=== PATIENT | female | born 1950 | race Caucasian/White ===

== ENCOUNTER 2016-10-16 12:54 | Inpatient (IN) | payer OTHER ==
--- NOTE | 2016-10-16 13:21 | ED EKG INTERP ---
EKG Interpretation - EKG Time of EKG reading by physician:: 13:12 EKG Read and Signed by:: Lan Shields EKG Interpretation (*Must complete 3 of following elements*): Abnormal Rate: 126 Rhythm: A-fib with RVR QRS: LBB ST Wave: non-specific ST changes Prior EKG Comparison: changes noted (new a-fib) <Leoncio King - Last Filed: 10/16/16 13:19> - EKG QRS: other (review of preivous EKG reveals that the LBBB is old) <Lan Shields - Last Filed: 10/16/16 16:25> Attestation - Scribe Verification/Attestation Scribe:: Leoncio King Acting as Scribe for:: Lan Shields Scribe documention review:: This chart was documented by a scribe and accurately reflects the service the provider performed and the decisions made by the provider. <Leoncio King - Last Filed: 10/16/16 13:19> Physician Attestation - Physician Attestation I, the provider, attest to the following statement:: Lan Shields Physician documentation Attestation:: This documentation recorded by the scribe accurately reflects the service I personally performed and the decisions made by me. <Leoncio King - Last Filed: 10/16/16 13:19>
[2016-10-16] MEDS ORDERED: CARDIZEM IV ONE (13:41)
--- NOTE | 2016-10-16 13:44 | PROVIDER DOCUMENTATION ---
HPI-General Adult - General Chief Complaint: Weakness Stated Complaint: cough/congestion Time Seen by Provider: 10/16/16 13:29 Source: patient Allergies/Adverse Reactions: Patient Allergies Allergy/AdvReac Type Severity Reaction Status Date / Time celecoxib [From Celebrex] Allergy ITCHING Verified 10/16/16 13:46 Home Medications: Home Medication List Medication Instructions Recorded Confirmed Last Taken Type Aspirin [Aspirin EC] 81 mg PO DAILY 02/20/15 10/16/16 10/16/16 History Doxycycline 80 mg PO DAILY 02/20/15 02/20/15 02/20/15 History Rosuvastatin Calcium [Crestor] 10 mg PO DAILY 02/20/15 10/16/16 10/16/16 History Warfarin [Coumadin] 7.5 mg DAILY 02/20/15 10/16/16 10/16/16 History Amlodipine [Norvasc] 5 mg PO DAILY 10/16/16 10/16/16 10/16/16 History Hydrocodone Bit/Acetaminophen 1 each PO DAILY PRN 10/16/16 10/16/16 10/16/16 History [Hydrocodon-Acetaminoph 7.5-325] Metoprolol [Lopressor] 50 mg PO DAILY 10/16/16 10/16/16 10/16/16 History Valsartan 320 mg PO DAILY 10/16/16 10/16/16 10/16/16 History - History of Present Illness -Gen Adult Nature of Presenting Problems: patient is a 66 y/o F that presents to the ER with 5 days for generalized weakness and feeling of unwell. she reports having cough with blood tinted. No fever/chills, N/V but does report diarrhea. Denies chest pain or shortness of breath. Location of Pain/Injury: reports: generalized Pain Radiation: reports: no radiation Quality of Pain: reports: aching Severity: reports: moderate Onset/Duration: reports: gradual, 5 days ago Timing: reports: still present, constant Context/Activities at Onset: reports: none Modifying Factors: improves with: nothing Associated Symptoms: reports: cough, diarrhea, weakness. denies: back/neck pain , chest pain, diaphoresis, dizziness, EENT symptoms, fever/chills, genitourinary problems, nausea, shortness of breath, vomiting Similar Symptoms Previously?: No Recently seen or treated by another doctor?: No Review of Systems - Adult - REVIEW OF SYSTEMS - ADULT Constitutional: reports: fatique. denies: chills, fever Eyes: reports: no symptoms reported Ears, Nose, Mouth & Throat: denies: ear pain, sinus problem, throat pain, throat swelling Cardiovascular: denies: chest pain, palpitations, syncope Respiratory: reports: cough, hemoptysis, shortness of breath Gastrointestinal: reports: diarrhea. denies: abdominal pain, nausea, vomiting Genitourinary: denies: dysuria, frequency, hematuria Musculoskeletal: reports: muscle aches, muscle weakness Integumentary: reports: no symptoms reported Neurological: reports: no symptoms reported Psychiatric: reports: no symptoms reported Endocrine: reports: no symptoms reported Hematologic/Lymphatic: reports: no symptoms reported Allergic/Immunologic: reports: no symptoms reported All Other Systems: Reviewed and Negative Past History - Adult - PAST MEDICAL HISTORY-ADULT Review of Records: reports: Old Records Reviewed, Nursing Assessment Review, Medications Reviewed Cardiovascular: reports: cardiac disease, A-Fib, HTN, hyperlipidemia - PRIOR SURGERIES/PROCEDURES Surgical/Procedure History: reports: hysterectomy, - IMMUNIZATION STATUS Childhood Immunizations: See Nurse Assessment Flu Vaccine: See Nurse Assessment - FAMILY HISTORY Family History: reviewed, not pertinent - SOCIAL HISTORY Smoking: quit greater than 1 year, cigarettes Living Situation: family Physical Exam-General - PHYSICAL EXAM-ADULT Initial Vital Signs Reviewed: Yes - CONSTITUTIONAL General Appearance: alert, no apparent distress - EYES Eyes: PERRL/EOMI, pink conjunctivae - HEAD, EARS, NOSE, MOUTH & THROAT HENMT: normocephalic/atraumatic, moist mucous membranes, normal ENT inspection - NECK Neck: non-tender, full range of motion, normal inspection - RESPIRATORY Respiratory: no respiratory distress, no accessory muscle use, wheezing ( expiratory throughout bilateral) - CARDIOVASCULAR Cardiovascular: tachycardia, irregularly irregular - GASTROINTESTINAL (ABDOMEN) Abdominal Exam: normal bowel sounds, non tender, soft, no organomegaly, no pulsatile mass - MUSCULOSKELETAL Extremity: normal range of motion, non-tender, normal inspection, no pedal edema - SKIN Integumentary: normal color, warm/dry - NEUROLOGIC Neurologic: grossly normal, no motor/sensory deficits - PSYCHIATRIC Psych/Mental Status: normal mood/affect, normal thought content, normal thought process, oriented x 3 Progress - PLAN OF CARE/RESULTS Progress/Plan/Lab Results: plan of care-labs, ekg, cxr, meds 1442-fluids and antibiotic ordered, at bedside due to patient's low bp 1452-hospitalist paged Vital Signs Temp Pulse Resp BP Pulse Ox 10/16/16 14:52 108 H 18 94 L 10/16/16 14:47 107 H 33 H 147/70 94 L 10/16/16 14:34 110 H 31 H 92/51 88 L 10/16/16 14:24 106 H 31 H 108/54 90 L 10/16/16 14:21 124 H 33 H 133/46 10/16/16 13:14 98.2 F 122 H 22 158/68 95 celecoxib [From Celebrex] Allergy (Verified 10/16/16 13:46) ITCHING Aspirin [Aspirin EC] 81 mg PO DAILY 02/20/15 Doxycycline 80 mg PO DAILY 02/20/15 Rosuvastatin Calcium [Crestor] 10 mg PO DAILY 02/20/15 Warfarin [Coumadin] 7.5 mg DAILY 02/20/15 Amlodipine [Norvasc] 5 mg PO DAILY 10/16/16 Hydrocodone Bit/Acetaminophen [Hydrocodon-Acetaminoph 7.5-325] 1 each PO DAILY PRN 10/16/16 Metoprolol [Lopressor] 50 mg PO DAILY 10/16/16 Valsartan 320 mg PO DAILY 10/16/16 Laboratory 10/16/16 10/16/16 10/16/16 13:26 13:26 13:26 WBC RBC Hgb Hct MCV MCH MCHC RDW Std Deviation Plt Count MPV Immature Gran % (Auto) Neut % (Auto) Lymph % (Auto) Clark % (Auto) Eos % (Auto) Baso % (Auto) Immature Gran # (Auto) Neut # (Auto) Lymph # (Auto) Clark # (Auto) Eos # (Auto) Baso # (Auto) PT 40.1 H INR 3.73 PTT (Actin FS) 61.8 H Sodium Potassium Chloride Carbon Dioxide Anion Gap BUN Creatinine Estimated GFR/1.73 m2 BUN/Creatinine Ratio Glucose Calculated Osmolality Calcium Magnesium Total Bilirubin AST ALT Alkaline Phosphatase Creatine Kinase Creatine Kinase Index CK-MB (CK-2) Troponin T 0.134 H Grq-V-Ubhipumgutd Pept Total Protein Albumin Globulin Albumin/Globulin Ratio Plasma Lactate 3.3 H 10/16/16 10/16/16 10/16/16 13:26 13:26 13:26 WBC 24.86 H RBC 4.44 Hgb 12.9 Hct 38.9 MCV 87.6 MCH 29.1 MCHC 33.2 RDW Std Deviation 14.9 H Plt Count 190 MPV 12.3 H Immature Gran % (Auto) 1.6 H Neut % (Auto) 96.4 H Lymph % (Auto) 1.0 L Clark % (Auto) 0.9 L Eos % (Auto) 0.0 Baso % (Auto) 0.1 Immature Gran # (Auto) 0.41 H Neut # (Auto) 23.94 H Lymph # (Auto) 0.26 L Clark # (Auto) 0.23 Eos # (Auto) 0.00 Baso # (Auto) 0.02 PT INR PTT (Actin FS) Sodium 127 L Potassium 4.5 Chloride 89 L Carbon Dioxide 17 L Anion Gap 21 BUN 48 H Creatinine 2.6 H Estimated GFR/1.73 m2 18 BUN/Creatinine Ratio 18 Glucose 90 Calculated Osmolality 267 Calcium 8.0 L Magnesium 1.6 Total Bilirubin 0.68 AST 40 H ALT 19 Alkaline Phosphatase 67 Creatine Kinase 814 H Creatine Kinase Index 0.9 CK-MB (CK-2) 7.22 H Troponin T Jkg-A-Oykwhedbeqt Pept 43551 H Total Protein 6.4 Albumin 2.9 L Globulin 3.5 Albumin/Globulin Ratio 0.8 Plasma Lactate Orders Category Date Time Status Cardiac Monitoring DIRECTED Care 10/16/16 13:38 Active Oxygen Therapy- ED Nursing DIRECTED Care 10/16/16 14:37 Active Saline Loc NOW Care 10/16/16 13:38 Active CHEST-PORTABLE [RAD] Stat Exams 10/16/16 13:39 Draft BLOOD CULTURE [BLDCUL] Stat Lab 10/16/16 14:00 Results CBC WITH ELECTRONIC DIFF [HEME] Stat Lab 10/16/16 13:26 Completed CK PROFILE [SP CHEM] Stat Lab 10/16/16 13:26 Completed COMPREHENSIVE METABOLIC PANEL [CHEM] Stat Lab 10/16/16 13:26 Completed INFLUENZA SCREEN A/B Stat Lab 10/16/16 13:50 Completed LACTATE, PLASMA [CHEM] Stat Lab 10/16/16 13:26 Completed LACTATE, PLASMA [CHEM] Stat Lab 10/16/16 16:45 Uncollected MAGNESIUM [CHEM] Stat Lab 10/16/16 13:26 Completed PRO B-NATRIURETIC PEPTIDE Stat Lab 10/16/16 13:26 Completed PROTIME WITH INR [COAG] Stat Lab 10/16/16 13:26 Completed PTT [COAG] Stat Lab 10/16/16 13:26 Completed TROPONIN T Stat Lab 10/16/16 13:26 Completed 0.9% Sodium Chloride Inj [Ns] 500 ml Med 10/16/16 14:36 Discontinued IV 999 mls/hr 0.9% Sodium Chloride Inj [Ns] 500 ml Med 10/16/16 14:42 Discontinued IV 999 mls/hr Albuterol 2.5MG/Ipratrop 0.5MG [Duoneb (A & A)] Med 10/16/16 14:37 Discontinued 3 ml INH NOW ONE Diltiazem [Cardizem] Med 10/16/16 13:41 Discontinued 10 mg IV NOW ONE Piperacil/Tazobact 3.375 gm/Ns [Zosyn 3.375 gm/Ns] 50 Med 10/16/16 14:42 Discontinued ml IV NOW Aerosol Treatments Routine Oth 10/16/16 14:38 Completed Aerosol Treatments Stat Oth 10/16/16 14:38 Completed - XRAY 1 XRAY Study: Chest Impression: Abnormal XRAY Interpretation: Pneumonia on Right - CONSULTS/PCP/HOSPITALIST Notification #1 *Consult/PCP/Hospitalist*: (hospitalist) Time Discussed: 15:30 Reason/Comments: at bedside Consult Disposition: Will see in ED, Admit Departure - Departure Time of Disposition Order: 15:30 DIAGNOSIS: Atrial fibrillation with RVR, URIEL (acute kidney injury), Elevated troponin Pneumonia involving right lung Qualifiers: Pneumonia type: due to unspecified organism Lung location: unspecified part of lung Qualified Code(s): J18.9 - Pneumonia, unspecified organism Sepsis Qualifiers: Sepsis type: sepsis due to unspecified organism Qualified Code(s): A41.9 - Sepsis, unspecified organism Hypotension Qualifiers: Hypotension type: other hypotension type Qualified Code(s): I95.89 - Other hypotension Heart failure Qualifiers: Heart failure type: unspecified heart failure type Heart failure chronicity: acute Qualified Code(s): I50.9 - Heart failure, unspecified Disposition: ADMITTED INPATIENT 09 Certified Medical Emergency: Emergent Condition: Stable Referrals: Pollo Shepherd [Primary Care Provider] - - Critical Care Note Total Time (mins): 45 Critical Care Statement: This patient required my direct personal management to treat or rule out processes, the absence of which, could potentiallly result in sudden, clinically significant life or limb threatening deterioration. Attestation - Scribe Verification/Attestation Scribe:: Leoncio King Acting as Scribe for:: Lan Shields Scribe documention review:: This chart was documented by a scribe and accurately reflects the service the provider performed and the decisions made by the provider. Physician Attestation - Physician Attestation I, the provider, attest to the following statement:: Lan Shields Physician documentation Attestation:: This documentation recorded by the scribe accurately reflects the service I personally performed and the decisions made by me.
[2016-10-16 14:17] LABS: INR 3.73; PROTIME 40.1 Seconds (9.2-11.7); PTT 61.8 Seconds (22.0-36.0)
[2016-10-16 14:18] LABS: BASO% 0.1 % (0.0-0.8); HEMATOCRIT 38.9 % (37.0-47.0); HEMOGLOBIN 12.9 g/dL (12.0-16.0); IMM GRAN# 0.41 X1000 (0.0-0.04); IMM GRAN% 1.6 % (0.0-0.5); LYMPH# 0.26 X1000 (1.2-3.4); MANUAL DIFF NEEDED? NO; MCH 29.1 PG (27-31); MCHC 33.2 g/dL (33-37); MCV 87.6 FL (81-99); MONO# 0.23 X1000 (0.11-0.59); MONO% 0.9 % (1.7-9.3); MPV 12.3 FL (7.4-10.4); NEUT% 96.4 % (42.2-75.2); PLT 190 X1000 (130-400); RBC 4.44 XMIL (4.2-5.4)
--- NOTE | 2016-10-16 14:24 | Diag Imaging Result Document ---
PROCEDURE NAME: CHEST-PORTABLE - 10/16/2016 AP PORTABLE CHEST AT 1353 HOURS: FINDINGS: There is dense alveolar opacification in the mid lung field on the right extending into the lower lobe. This was not present on 02/20/2015. There is cardiomegaly. There is a mitral valve prosthesis. There are sternotomy wires. IMPRESSION: Pneumonia on the right.
[2016-10-16] MEDS ORDERED: NS 500 ML IV ONE ×2 (14:36→14:42)
[2016-10-16] MEDS: DUONEB (A & A) INH ONE ×2 (14:37→23:31)
[2016-10-16] MEDS ORDERED: ZOSYN 3.375 GM/NS 50 ML IV ONE (14:42)
[2016-10-16 14:43] LABS: ALBUMIN 2.9 g/dL (3.5-5.0); MAGNESIUM 1.6 mg/dL (1.5-2.7); POTASSIUM 4.5 mmol/L (3.5-5.1); TOTAL BILIRUBIN 0.68 mg/dL (0.20-1.00); TOTAL PROTEIN 6.4 g/dL (6.3-8.3)
[2016-10-16 14:56] LABS: CK INDEX 0.9 (0.0-2.5); CK-MB 7.22 ng/mL (0.0-5.0)
[2016-10-16] MEDS ORDERED: NS NEB INH SCH (16:15)
[2016-10-16] MEDS ORDERED: LASIX IV ONE (16:30)
[2016-10-16] MEDS ORDERED: LEVAQUIN 250 MG/D5W 50 ML IV SCH (16:30)
--- NOTE | 2016-10-16 16:41 | HISTORY AND PHYSICAL ---
HISTORY OF PRESENT ILLNESS: She states that over the last 7-10 days she has gotten progressively more short of breath. She denies any fever or chills. She has been coughing a little more. Definite increase in orthopnea and paroxysmal nocturnal dyspnea and dyspnea, and she has noticed some swelling in her lower extremities as well. She denies any chest pain. She denies any feeling of palpitations. She does say she thinks she has had atrial fibrillation in the past. She has never been admitted here. PAST MEDICAL HISTORY: 1. She states she has had atrial fibrillation before. 2. She states she has had what sounds like a partial ventriculectomy for I suspect ventral hernia and aortic valve replacement. I think this was a little over a year ago. 3. She has been on O2, and she smoked all her life. So, I presume she has got some underlying COPD with hypoxemia. I suspect some CO2 retention. 4. Hypertension. 5. Hyperlipidemia. PAST SURGICAL HISTORY: She has had a hysterectomy. Apparently, she has had some cancer involving the vulva and had some vaginal resection. She has also had some lymph node dissections in both legs, I believe at the femoral triangle. She has had right knee surgery with patella fracture. FAMILY HISTORY: Brother has had a stroke. Apparently peripheral vascular disease. SOCIAL HISTORY: She smoked all her life. She has cut back. She has not had any cigarettes in a couple weeks and was down to a couple of cigarettes a week by report. Negative for alcohol. No illicit drugs. I think she lives alone. REVIEW OF SYSTEMS: General: No weight gain or loss. No fever or chills that she is aware of. HEENT: Unremarkable. Respiratory: As above. Increased orthopnea. Episodes of paroxysmal nocturnal dyspnea. Increased cough. Increased wheezing. Increased dyspnea on exertion and increased pedal edema. Cardiovascular: She denies any palpitation or chest pain. GI/: No gross hematuria, dysuria. No change in bowel habits. Musculoskeletal/Neurologic: No focal changes. Endocrinologic/Hematologic: No significant history that she is aware of. No thyroid issues. PHYSICAL EXAMINATION: VITAL SIGNS: Temp 98.2 degrees, pulse 114, respirations 30, blood pressure 99/41. EYES: Pupils are equal and round. CVP: About 10 cm water pressure from angle of Dominguez. LUNGS: With rales at both bases and expiratory wheezing throughout the lungs. Prolonged expiratory phase, 1.5 to 1 inspiratory phase. She is on a face mask at this time. CARDIOVASCULAR: Irregular rhythm, irregular rate. Monitor shows atrial fibrillation, rate about 110. She has a left bundle branch pattern. ABDOMEN: Soft. No hepatosplenomegaly. There is positive hepatojugular reflux. EXTREMITIES: Without clubbing. She does have trace edema in the ankle up to mid kennedy. SKIN: Warm and dry. WEIGHT: 175 pounds. HEIGHT: 5 feet 3 inches. LABORATORY DATA: Blood Work: White blood cell count 24,860. Hematocrit 38, platelet count 190,000. Sodium 127, potassium 4.5, chloride 89, bicarb 17. BUN 48, creatinine 2.6. Liver functions: Transaminase AST was 40, ALT 19. Alkaline phos 67. ProBNP was 25,062. Albumin 2.9. Globulin 3.5. Lactate level 3.3. ProTime 40. PTT 61. Chest x-ray shows pneumonia on the right side. There is a mitral valve prosthesis. So it is a mitral valve, not aorta valve. Opacification of the mid lung field. The right extending into the lower lobe. PRESENT MEDICATIONS: 1. Norvasc 5 mg a day. 2. Aspirin 81 mg a day. 3. Doxycycline 80 mg daily. 4. Hydrocodone 7.5/325 p.r.n. 5. Lopressor 50 mg a day. 6. Crestor 10 mg a day. 7. Losartan 320 mg daily. 8. Coumadin 7.5 mg daily. Once again, her ProTime was 40, so a little elevated. ASSESSMENT AND PLAN: 1. It looks like she has got pulmonary venous hypertension, so we will try and diurese a little bit. This is in the face of what appears to be chronic atrial fibrillation. We will get an echocardiogram and look at her left ventricular function. She has had a ventriculectomy, it appears from mitral valve replacement and not aortic valve with a mechanical valve. 2. Has mechanical valve, in atrial fibrillation. She is on Coumadin. ProTime is high. We need to hold her Coumadin and watch her ProTimes and let these drift down. 3. Appears to have an infiltrate on the right, so, consistent with pneumonia. Her white count is elevated. Community acquired. We will put her on Levaquin and may add Rocephin to her regimen for right now. Cover for gram negative as well. 4. Status post ventriculectomy. I presume there is some left ventricular dysfunction. ProBNP is elevated and probably also augmented by her left bundle branch block and atrial fibrillation. I asked Cardiology to help with management. 5. History of hypercholesterolemia. Continue Crestor. We will watch her blood pressure. Note the lactate level was a little bit high.
--- NOTE | 2016-10-16 17:41 | CONSULTATION ---
DATE OF CONSULTATION: 10/16/2016 INDICATION: History of mitral valve replacement and hypertrophic obstructive cardiomyopathy. HISTORY OF PRESENT ILLNESS: Ms. Collins is a 66-year-old, white female with a history of mitral valve replacement and HOCM, normally followed by Dr. Miller, last office visit in October 2015. She presented for evaluation of worsening shortness of breath over the last 5-6 days. Initial ER evaluation has demonstrated a markedly elevated white count at 24.8 with a left shift. She has hyponatremia and acute kidney injury as well. Her lactate is 3.3. She has had some subjective fevers at home as well as some cough. She has not had any orthopnea. She does report some issues with lower extremity edema. She has Lasix at home but has not been taking it for the last several months because she has not needed it. She has not had any chest pain. She has a history of atrial fibrillation as well as mitral valve replacement and has been taking her Coumadin as directed. PAST MEDICAL HISTORY: 1. Significant for hypertrophic cardiomyopathy. She had a myectomy performed by Dr. Zamora 2014. Her last echo was performed in April 2015. At that time, she had a normal EF of 60%-65% and continued to have severe interventricular septal hypertrophy with a thickness of 2.8 cm. 2. History of mitral valve replacement. That was performed in 2014 as well. The gradient across the valve at that time was not indicated on report that we have. 3. Coronary artery disease with previous PCI in 2003. 4. Paroxysmal atrial fibrillation maintained on Coumadin followed by Dr. Shepherd. 5. Carotid artery disease, a 60%-79% bilateral ICA stenosis by Doppler. 6. Hypertension. 7. Hyperlipidemia. 8. Reflux disease. SOCIAL HISTORY: She does not smoke. She previously did but not currently. FAMILY HISTORY: Hypertension. REVIEW OF SYSTEMS: A 10 system review of systems is negative except for those mentioned in HPI. PHYSICAL EXAMINATION: Vital Signs: Afebrile, heart rate of 114, blood pressure 99/41. General: She is in no acute distress. She is somewhat tachypneic. HEENT: Oropharynx is moist. She has normal dentition. Eye examination shows pink conjunctivae, white sclerae. Neck: Examination shows no obvious thyromegaly or thyroid tenderness. Cardiovascular: She is in a regular rate and rhythm. She has no obvious murmurs. She has no S3. She has no lower extremity edema. She has warm and well perfused lower extremities. She does have a crisp mechanical S1. Chest Exam: She has coarse breath sounds heard throughout especially on the right side. She has some mild tachypnea. Abdomen: Soft, nontender, nondistended. She has no obvious organomegaly. Skin Exam: Warm and dry throughout. Neurological: She is moving all extremities well. Cranial nerves 2- 12 are intact without any sensation deficits. Psychiatric: Alert, oriented, and pleasant. She has normal mood and affect. PERTINENT DATA: She has a chest x-ray today which demonstrates a right-sided pneumonia, mitral valve prosthesis. Laboratory data shows a white count of 25, hematocrit is 38, platelet count is 190,000, INR is 3.7. Her sodium is 127, potassium is 4.5. Her BUN is 48, creatinine 2.6. In 2015 her BUN and creatinine were 19 and 1.1. Her troponin is 0.134. Her albumin level is 2.9. Her proBNP is 25,000. Lactate level is 3.3. EKG shows a left bundle branch block which is chronic, she appears to be in atrial fibrillation, rate of 126. ASSESSMENT: 1. Severe pneumonia. 2. Mitral valve replacement. 3. Hypertrophic obstructive cardiomyopathy. PLAN: We will check an echo. We will like to see what her left ventricle looks like, if it is small and under filled we will likely consider fluids. In addition I have ordered a noncontrast CT to ensure she does not have pulmonary edema but certainly the patient has a history of HOCM which certainly could explain some of these issues with the hyponatremia and heart failure type presentation. However more likely I believe she has a pneumonia causing the elevated white count, hyponatremia, renal insufficiency. Her proBNP is quite elevated which I cannot quite account for by the pneumonia, but perhaps this is also complicated by the acute kidney injury and atrial fibrillation. We will follow up on the CT and echo results.
[2016-10-16] MEDS ORDERED: ZOFRAN IV PRN (19:01)
[2016-10-16] MEDS ORDERED: NORCO-7.5 PO PRN (19:01)
[2016-10-16] MEDS ORDERED: TYLENOL PO PRN (19:01)
[2016-10-16] MEDS ORDERED: MUCOMYST 20% ONE (19:11)
[2016-10-16] MEDS: ATROVENT NEB INH SCH ×2 (19:26→23:32)
[2016-10-16] MEDS: MUCOMYST 20% INH SCH (19:27)
[2016-10-16] MEDS: PULMICORT INH SCH (19:27)
[2016-10-16] MEDS: XOPENEX NEB INH SCH ×2 (19:27→23:32)
[2016-10-16] MEDS: ROCEPHIN 1 GM/NS 50 ML IV SCH (19:49)
[2016-10-16] MEDS: LOPRESSOR PO SCH (20:58)
[2016-10-16] MEDS ORDERED: LASIX IV SCH (21:00)
[2016-10-16 22:30] LABS: CK INDEX 0.7 (0.0-2.5); CK-MB 7.48 ng/mL (0.0-5.0)
--- NOTE | 2016-10-17 02:39 | PROGRESS NOTE ---
DATE: 10/16/2016 ADDENDUM: Chest x-ray showed pneumonia on the right and I guess we also need to entertain the possibility of a PTE. Troponin was mildly elevated. CPK elevated. Also of concern is her acute kidney injury. Not sure of her baseline creatinine but her creatinine was 2.6. We may need to pursue a V/Q scan. We will put her on oral Levaquin and Rocephin for now for antibiotics.
[2016-10-17] MEDS: XOPENEX NEB INH SCH ×5 (03:30→19:50)
[2016-10-17] MEDS: ATROVENT NEB INH SCH ×5 (03:40→19:50)
[2016-10-17] MEDS ORDERED: LANOXIN IV ONE ×2 (04:04→09:00)
[2016-10-17] MEDS: CARDIZEM 100 MG/NS 100 ML IV SCH ×2 (04:17→16:35)
[2016-10-17 04:35] LABS: ALLEN TEST YES; BE -11.3 mmoll (-3.0-3.0); BLOOD TYPE ARTERIAL; DRAW SITE R RADIAL; METHB 1.2 % (0.0-1.5); MODALITY VENTIMASK; O2(CT) 18.5 mL/dL (15.0-23.0); PCO2(98.6) 25 mmHg (35-45); PO2(98.6) 62 mmHg (60-100); SAMPLE BLOOD; SAO2 93.4 % (95.0-100.0); THB 14.6 g/dL (11.5-17.4); pH(98.6) 7.32 (7.35-7.45)
[2016-10-17 05:45] LABS: HEMOGLOBIN A1C 5.5 % (4.8-6.0)
[2016-10-17 06:05] LABS: ALBUMIN 2.7 g/dL (3.5-5.0); CALCIUM 7.4 mg/dL (8.8-10.2); MAGNESIUM 1.6 mg/dL (1.5-2.7); POTASSIUM 4.7 mmol/L (3.5-5.1); TOTAL BILIRUBIN 0.78 mg/dL (0.20-1.00); TOTAL PROTEIN 5.9 g/dL (6.3-8.3)
[2016-10-17 06:14] LABS: URINE CULTURE NEEDED? NO; URINE SOURCE CATH
--- NOTE | 2016-10-17 06:22 | EKG Report ---
Test Performed on : 10/16/2016 1:12:26 PM Test Reason : SOB Blood Pressure : / mmHG Vent. Rate : 126 BPM Atrial Rate : 120 BPM P-R Int : 000 ms QRS Dur : 158 ms QT Int : 366 ms P-R-T Axes : 000 -08 168 degrees QTc Int : 530 ms Atrial fibrillation. with rapid ventricular response. Left bundle branch block Abnormal ECG No previous ECGs available Unconfirmed Result
[2016-10-17 06:36] LABS: EOS# 0.09 X1000 (0.0-0.7); EOS% 0.4 % (0.0-10.0); HEMATOCRIT 35.8 % (37.0-47.0); IMM GRAN# 1.15 X1000 (0.0-0.04); IMM GRAN% 4.7 % (0.0-0.5); LYMPH# 0.19 X1000 (1.2-3.4); LYMPH% 0.8 % (20.5-51.1); MANUAL DIFF NEEDED? YES; MCH 28.9 PG (27-31); MCHC 33.5 g/dL (33-37); MCV 86.3 FL (81-99); MONO# 0.18 X1000 (0.11-0.59); MONO% 0.7 % (1.7-9.3); MPV 12.1 FL (7.4-10.4); NEUT% 93.4 % (42.2-75.2); PLT 206 X1000 (130-400); RBC 4.15 XMIL (4.2-5.4)
[2016-10-17 06:42] LABS: BANDS 4 % (0-1); LYMPHS 6 % (21-51); MONO 3 % (1-9)
[2016-10-17 06:57] LABS: CK INDEX 0.8 (0.0-2.5); CK-MB 9.62 ng/mL (0.0-5.0)
[2016-10-17] MEDS ORDERED: PRILOSEC PO SCH (07:00)
--- NOTE | 2016-10-17 07:22 | EKG Report ---
Test Performed on : 10/17/2016 07:06:33 AM Test Reason : 0600 Blood Pressure : / mmHG Vent. Rate : 111 BPM Atrial Rate : 111 BPM P-R Int : 000 ms QRS Dur : 158 ms QT Int : 314 ms P-R-T Axes : 000 -09 168 degrees QTc Int : 427 ms Atrial fibrillation. with rapid ventricular response. Left bundle branch block Abnormal ECG No previous ECGs available Confirmed by Praveen GOMEZ, Aris Pandey ([id number]) on 10/17/2016 5:23:25 PM
[2016-10-17 07:26] LABS: FREE T4 1.13 ng/dL (0.93-1.70)
[2016-10-17] MEDS ORDERED: BENADRYL IV PRN (07:27)
[2016-10-17] MEDS ORDERED: SOLU-MEDROL IV ONE (07:28)
--- NOTE | 2016-10-17 07:28 | PROGRESS NOTE ---
DATE: 10/17/2016 SUBJECTIVE: Ms. Collins says she feels better. She says it has only been the last couple of hours. She is breathing more comfortably and feels better. She has remained afebrile. OBJECTIVE: Her temperature was 99.2 degrees, pulse 127, blood pressure 106/52, respiration rate about 20. She is on O2 Venturi mask. O2 saturations above 90%. Lungs are clear anterolateral. Cardiovascular: Regular rhythm and rate without murmur or S3. Abdomen is soft. Skin is warm and dry. Good urine output by report. I do not see I's and O's yet. LABORATORY DATA: White count 24,590. Hematocrit 35, platelet count 206,000. Sodium 125, potassium 4.7, chloride 88. BUN 62, creatinine 3.6. ProBNP was 35,000. ASSESSMENT AND PLAN: 1. Severe pneumonia. Continue present antibiotics and bronchodilators, supplemental O2. 2. History of mitral valve replacement. 3. Hypertrophic obstructive cardiomyopathy. I believe she had part of her septum resected for hypertrophic cardiomyopathy. 4. Renal insufficiency. Serum creatinine is 3.6. I think we need to give her a little more volume to see if this will improve. She is on Cardizem drip. Appears to remain in atrial fibrillation. She was given some digoxin yesterday. She is on some Levaquin and ceftriaxone. I think we will need to pursue probably a V/Q scan or even do a CT without contrast. We will discuss with Cardiology.
[2016-10-17 07:30] LABS: BILIRUBIN URINE NEGATIVE (NEGATIVE); BLOOD URINE SMALL (NEGATIVE); COLOR YELLOW; GLUCOSE URINE NEGATIVE (NEGATIVE); LEUKOCYTES URINE NEGATIVE (NEGATIVE); NITRITE URINE NEGATIVE (NEGATIVE); PH URINE 5.5; PROTEIN URINE 100 mg/dL (NEGATIVE); SP GRAVITY URINE 1.021; TURBIDITY URINE TURBID (CLEAR); UROBILINOGEN URINE 2 mg/dL (NORMAL)
[2016-10-17 07:32] LABS: UR EPITHELIAL CELLS >10 /HPF (<10); URINE BACTERIA NEGATIVE /HPF; URINE MICRO REVIEW NEEDED? YES; URINE RBC <10 /HPF (<10); URINE WBC <10 /HPF (<10)
[2016-10-17 07:37] LABS: INR 7.73
[2016-10-17 07:38] LABS: PROTIME 83.7 Seconds (9.2-11.7)
[2016-10-17] MEDS: MUCOMYST 20% INH SCH ×2 (07:44→19:50)
[2016-10-17] MEDS: PULMICORT INH SCH ×2 (07:45→19:50)
[2016-10-17 07:52] LABS: URINE CASTS GRANULAR PRESENT; URINE CRYSTALS NONE SEEN; URINE SMALL ROUND CELLS NONE SEEN
[2016-10-17] MEDS: NS 1,000 ML IV SCH ×2 (07:55→21:56)
[2016-10-17] MEDS: CRESTOR PO SCH (08:07)
[2016-10-17 08:12] LABS: URINE CULTURE NEEDED? NO; URINE SOURCE CATH
[2016-10-17] MEDS: LOPRESSOR PO SCH ×2 (08:12→21:25)
[2016-10-17 08:26] LABS: BILIRUBIN URINE NEGATIVE (NEGATIVE); BLOOD URINE MODERATE (NEGATIVE); COLOR ORANGE; GLUCOSE URINE NEGATIVE (NEGATIVE); LEUKOCYTES URINE NEGATIVE (NEGATIVE); NITRITE URINE NEGATIVE (NEGATIVE); PH URINE 5.5; PROTEIN URINE 100 mg/dL (NEGATIVE); TURBIDITY URINE TURBID (CLEAR); UROBILINOGEN URINE 2 mg/dL (NORMAL)
[2016-10-17 08:27] LABS: URINE MICRO REVIEW NEEDED? YES
[2016-10-17 08:32] LABS: UR EPITHELIAL CELLS >10 /HPF (<10); URINE BACTERIA NEGATIVE /HPF; URINE WBC <10 /HPF (<10)
[2016-10-17 08:41] LABS: URINE CASTS NONE SEEN; URINE CRYSTALS NONE SEEN; URINE SMALL ROUND CELLS NONE SEEN
[2016-10-17] MEDS: ASPIRIN EC PO SCH (08:46)
--- NOTE | 2016-10-17 08:59 | PROGRESS NOTE ---
DATE: 10/17/2016 SUBJECTIVE: Ms. Collins reports she is feeling better this morning, but she still physically appears fairly tachypneic. OBJECTIVE: Vital Signs: She is febrile to 102.3 this morning. Heart rates continue to be elevated predominantly in the 110s to 120s. Blood pressure 109/52 most recently. General: She is in mild distress. She is on 50% face mask satting in the low 90s, and she is mildly tachypneic. Cardiovascular: She sounds to be in an irregularly irregular rhythm. This is consistent with her atrial fibrillation. She has no lower extremity edema, warm and well perfused extremities. Chest exam: She has very coarse breath sounds with rales somewhat diffusely throughout all lung hardin. She is mildly tachypneic. Abdomen: Soft, nontender, nondistended. She has no obvious organomegaly. Skin Exam: Warm and dry throughout. PERTINENT DATA: White count is 24, which is stable from yesterday. Hematocrit 35, platelet count 206. She has a left shift with a bandemia of 4, INR is 7.7 today. ABG shows a pH of 7.32, pCO2 of 25, PO2 of 62, and give an AA gradient of 263. Her sodium continues to be low at 125. BUN and creatinine have increased to 62 and 3.6. Her magnesium level is 1.6. Her cardiac enzymes continue to rise slightly 0.134, initially 0.206 this morning. Urinalysis was reviewed. ASSESSMENT: 1. Severe pneumonia. 2. 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 3. Atrial fibrillation. 4. Acute kidney injury. PLAN: I am unclear on her volume status. She did receive some Lasix yesterday in the ER, and I am unclear exactly how her output went, but she has had essentially very little urine output since coming up to the [facility]. I am consulting nephrology regarding her acute kidney injury, as well as pulmonary. I will start her on a BiPAP. I am concerned about her respiratory status, even though she says she is feeling better. Her lung exam is still significantly coarse. At this point she does have plenty reasons to have dyspnea secondary to her pneumonia, which could also explain the hyponatremia as well as the acute kidney injury issues going on as she is septic. However, I am concerned about her volume status as well. I would like pulmonary, as well as nephrology input to assist with this patient.
[2016-10-17] MEDS: ATIVAN IV PRN ×3 (09:15→19:25)
[2016-10-17 11:03] LABS: POTASSIUM 4.9 mmol/L (3.5-5.1)
[2016-10-17 11:29] LABS: CALCIUM 6.7 mg/dL (8.8-10.2)
--- NOTE | 2016-10-17 11:30 | Diag Imaging Result Document ---
PROCEDURE NAME: CHEST-PORTABLE - 10/17/2016 AP PORTABLE CHEST: TIME: 1055 hours. FINDINGS: There is volume loss on the right and alveolar opacity throughout the right lower lobe, particularly in the superior segment region. The left lung is clear. The findings were also present on 10/16/2016. This was not present on 02/20/2015. IMPRESSION: Right lower lobe pneumonia. Advise follow-up until clear.
[2016-10-17] MEDS ORDERED: NS 500 ML IV ONE ×3 (12:46→22:11)
[2016-10-17] MEDS ORDERED: VANCOMYCIN 1 GM/NS 250 ML IV ONE (13:00)
--- NOTE | 2016-10-17 13:43 | CONSULTATION ---
DATE OF CONSULTATION: 10/17/2016 REQUESTING PHYSICIAN: Dr. Estevan Chavez. REASON FOR CONSULTATION: Respiratory failure. HISTORY OF PRESENT ILLNESS: Ms. Collins is a 66-year-old white female with COPD, ongoing tobacco use, history of heart disease (see outline below), who has had increasing shortness of breath and cough with fevers over the last several days. The patient also reports cough productive of blood tinged sputum. Chest x-ray was performed which reveals dense infiltrates in the right lung. She has become tachypneic during this hospitalization. Currently on BiPAP. PAST MEDICAL HISTORY: 1. COPD with recent discontinuation of tobacco. 2. Chronic renal insufficiency. 3. Status post mitral valve replacement. 4. Status post myomectomy. 5. Hypertrophic cardiomyopathy. 6. Paroxysmal atrial fibrillation. 7. Coronary artery disease, status post percutaneous intervention. 8. Hypertension. 9. Dyslipidemia. 10. Gastric reflux disease. SOCIAL HISTORY: Ongoing tobacco use as per above. FAMILY HISTORY: Positive for hypertension. REVIEW OF SYSTEMS: As per HPI. PHYSICAL EXAMINATION: General: Reveals a well-developed, well-nourished, white female, with mild increased work of breathing. Vital Signs: Current temperature 98.7 degrees, maximum temperature during this hospitalization. 102.3 degrees. BP 104/45, heart rate 92. HEENT: Pupils are equal and reactive. Oropharynx is clear. Neck: Supple. Chest: Reveals diminished breath sounds with E to A changes at the right base. Cardiac Exam: Irregular rate. Normal S1, normal S2. Abdomen: Soft without hepatosplenomegaly. Extremities: Without edema. LABORATORIES: White blood count elevated at 24.6000, hemoglobin 12.0, platelet count 206,000. INR is elevated at 7.73. Electrolytes sodium 130, potassium 4.9, chloride 93, bicarbonate 14, BUN 66, creatinine 4.3, proBNP is greater than 35,000, cultures revealed sparse growth. IMPRESSION: A 66-year-old white female, with community-acquired pneumonia, hypoxemic respiratory failure, coagulopathy with hemoptysis, and acute on chronic renal failure. I agree with Dr. Chavez, her volume status is difficult to gauge at this juncture. RECOMMENDATIONS: 1. Continue broad-spectrum antibiotics. I will give a single dose of vancomycin pending culture results. 2. 1 units of fresh frozen plasma. Her coagulopathy will likely cause a progressive alveolar bleeding and I would like her INR in the 2-3 range. 3. Agree with gentle hydration. Would not give additional Lasix. 4. Oxygen and BiPAP as necessary. We have a low threshold for transfer to the intensive care unit. She is at risk for intubation during this hospitalization. This was discussed with the family.
[2016-10-17 14:04] LABS: POTASSIUM 4.9 mmol/L (3.5-5.1)
--- NOTE | 2016-10-17 14:10 | CONSULTATION ---
DATE OF CONSULTATION: 10/17/2016 REASON FOR CONSULTATION: Acute kidney injury. HISTORY OF PRESENT ILLNESS: Ms Cleveland is a 66-year-old white female who presented to the emergency room on the afternoon of the . She has been sick for about a week. She does have shortness of breath but she attributes this to her other symptoms. She has had some swelling as well as some pain in the legs. She feels her shortness of breath is just "because she is sick." Her initial evaluation demonstrated normal blood pressure but she has had episodic hypotension since admission with her lowest systolic pressure being 92. She has had fever as high as 102.3 as well. Pneumonia was evident on her initial chest x-ray. She was admitted to the hospital and treated with supplemental oxygen as well as IV methylprednisolone, ceftriaxone, levofloxacin. She is receiving normal saline at 75 mL an hour. In this context, her urine output has been very low and her kidney function has been poor such that her creatinine has risen progressively from 2.6-4.3. Historically her renal function is normal with a creatinine of 1.1 in February 2015. She has not been taking diuretics at home. PAST MEDICAL HISTORY: 1. Hypertrophic cardiomyopathy with her last LVEF being approximately 60%. She has undergone myotomy in the past. 2. History of mitral valve replacement. 3. Coronary artery disease. 4. Atrial fibrillation. 5. Carotid artery disease. 6. Hypertension. 7. Hyperlipidemia. 8. Gastroesophageal reflux disease. HOME MEDICATIONS: Include warfarin, rosuvastatin, aspirin, doxycycline, hydrocodone, amlodipine, metoprolol, valsartan. ALLERGIES: Ceftriaxone and celecoxib. SOCIAL HISTORY: No tobacco use currently. FAMILY HISTORY: Noncontributory. REVIEW OF SYSTEMS: Was otherwise somewhat difficult to obtain from her but otherwise negative. PHYSICAL EXAMINATION: Vital Signs: Blood pressure 109/52, heart rate 103, respiration 36, temperature 102.3 degrees. General Appearance: Obese woman in no acute distress. She does have increased work of breathing and increased respiratory rate. Skin: Was warm and dry. HEENT: Conjunctivae are pink and moist. Pupils are equal and round. Oropharynx is clear. Normal tongue. Neck: Supple. Trachea is midline. Neck veins were not appreciated. Heart: Irregular with gallop. Lungs: Have equal breath sounds. Few crackles are present. Abdomen: Obese and soft, modestly tender. Bowel sounds are positive. No organomegaly. Extremities: Have 1+ edema. No clubbing or cyanosis. IMPRESSION: Acute kidney injury. Likely she has acute tubular necrosis as a consequence of her infection, sepsis syndrome, hypotension. Her volume status is somewhat difficult to read but certainly in the early phase I would advocate erring on the side of volume expansion. She is receiving normal saline at 75 mL an hour and has received at least three 500 mL boluses of normal saline. Continue current care in this regard. Diuretics are on hold currently. She does have an associated metabolic acidosis that is likely caused by her kidney failure. We will check a serum acetone just to make sure there is no unrecognized diabetic ketoacidosis. Continue other supportive care. She has a high risk of requiring renal replacement therapy during this hospitalization.
[2016-10-17 14:16] LABS: CALCIUM 6.8 mg/dL (8.8-10.2)
[2016-10-17 14:27] LABS: CK INDEX 0.7 (0.0-2.5); CK-MB 9.61 ng/mL (0.0-5.0)
--- NOTE | 2016-10-17 14:56 | Diag Imaging Result Document ---
PROCEDURE NAME: LUNG SCAN / VQ - 10/17/2016 LUNG VENTILATION PERFUSION SCAN: Ventilation images performed using 38.66 mCi technetium-99m DTPA aerosol inhaled. Perfusion images performed using 5.8 mCi technetium-99m MAA administered intravenously. Ventilation and perfusion images are obtained in multiple projections over the lungs. FINDINGS: Ventilation is heterogeneous. There is a matching ventilation and perfusion defect at the posterior segment of the right upper lobe. There is no ventilation-perfusion mismatch (area which is ventilated, but not perfused) identified. IMPRESSION: Low probability for pulmonary embolism.
[2016-10-17] MEDS: SOLU-MEDROL IV SCH (15:44)
[2016-10-17 17:27] LABS: POTASSIUM 4.9 mmol/L (3.5-5.1)
[2016-10-17 17:46] LABS: CALCIUM 6.9 mg/dL (8.8-10.2)
--- NOTE | 2016-10-17 17:47 | Diag Imaging Result Document ---
PROCEDURE NAME: US RENAL 2 (RETROPER) COMPLETE - 10/17/2016 RENAL ULTRASOUND: FINDINGS: The right kidney is not visualized. There is a large amount of artifact from bowel gas at and below the right renal fossa, which may obscure the right kidney if it is present. The left kidney measures 10.9 x 5.8 x 7.1 cm in size. There is no left renal mass or hydronephrosis identified. There is no left renal stone identified. The urinary bladder is not distended and is not evaluated. IMPRESSION: 1. Right kidney not visualized. There is a large amount of artifact from bowel gas at and below the right renal fossa, which may obscure the right kidney if it is present. 2. No visible left renal abnormality. 3. No left hydronephrosis. [facility]
[2016-10-17] MEDS: ROCEPHIN 1 GM/NS 50 ML IV SCH (19:25)
[2016-10-17 20:41] LABS: BILIRUBIN URINE NEGATIVE (NEGATIVE); BLOOD URINE LARGE (NEGATIVE); COLOR BROWN; GLUCOSE URINE NEGATIVE (NEGATIVE); LEUKOCYTES URINE SMALL (NEGATIVE); NITRITE URINE NEGATIVE (NEGATIVE); PH URINE 5.5; PROTEIN URINE 100 mg/dL (NEGATIVE); TURBIDITY URINE TURBID (CLEAR); URINE SOURCE CATH; UROBILINOGEN URINE NORMAL (NORMAL)
[2016-10-17 20:44] LABS: URINE MICRO REVIEW NEEDED? YES
[2016-10-17 20:45] LABS: ALLEN TEST YES; BE -12.8 mmoll (-3.0-3.0); BLOOD TYPE ARTERIAL; DRAW SITE R RADIAL; METHB 1.2 % (0.0-1.5); O2(CT) 14.3 mL/dL (15.0-23.0); PCO2(98.6) 29 mmHg (35-45); PO2(98.6) 88 mmHg (60-100); SAMPLE BLOOD; SAO2 99.6 % (95.0-100.0); THB 10.5 g/dL (11.5-17.4); pH(98.6) 7.26 (7.35-7.45)
[2016-10-17 20:46] LABS: MODALITY BI PAP
[2016-10-17] MEDS ORDERED: DIPRIVAN 1% 100 ML ONE (20:57)
[2016-10-17 21:05] LABS: URINE RBC TNTC /HPF (<10)
[2016-10-17 21:06] LABS: UR EPITHELIAL CELLS <10 /HPF (<10); URINE BACTERIA NEGATIVE /HPF
[2016-10-17] MEDS ORDERED: MORPHINE IV PRN (21:14)
[2016-10-17 21:30] LABS: URINE CASTS NONE SEEN; URINE CRYSTALS NONE SEEN; URINE SMALL ROUND CELLS NONE SEEN
[2016-10-17 21:41] LABS: UR CREAT RANDOM 180.8 mg/dL (11-20); UR PROT RANDOM 163.3 mg/dL
[2016-10-17] MEDS: SODIUM BICARBONATE 8.4% 150 MEQ in D5W 1,000 ML IV SCH (21:45)
[2016-10-17] MEDS: PROTONIX IV SCH (21:56)
[2016-10-17] MEDS: SODIUM CHLORIDE 0.9% INJ SCH (21:56)
[2016-10-17] MEDS ORDERED: LEVOPHED 8 MG in D5 1/2 NS 250 ML IV SCH (22:00)
[2016-10-17 22:06] LABS: PROTIME 81.8 Seconds (9.2-11.7)
[2016-10-17 22:10] LABS: INR 7.56
[2016-10-17] MEDS: DIPRIVAN 1% 100 ML IV SCH (23:18)
[2016-10-17] MEDS: DUONEB (A & A) INH SCH (23:30)
[2016-10-17] MEDS: LASIX IV SCH (23:45)
[2016-10-17] MEDS ORDERED: MISC. PHARMACY COMMUNICATION SCH (23:45)
[2016-10-18] MEDS: SODIUM BICARBONATE 8.4% 150 MEQ in D5W 1,000 ML IV SCH ×2 (00:08→05:59)
[2016-10-18] MEDS: SOLU-MEDROL IV SCH ×3 (00:38→15:28)
[2016-10-18] MEDS: LASIX IV SCH (01:03)
[2016-10-18] MEDS: DIPRIVAN 1% 100 ML IV SCH ×7 (01:37→22:05)
[2016-10-18] MEDS: DUONEB (A & A) INH SCH ×6 (03:00→22:59)
[2016-10-18 03:35] LABS: ALLEN TEST YES; BE -10.6 mmoll (-3.0-3.0); BLOOD TYPE ARTERIAL; DRAW SITE R RADIAL; METHB 1.7 % (0.0-1.5); O2(CT) 13.1 mL/dL (15.0-23.0); PCO2(98.6) 31 mmHg (35-45); PO2(98.6) 78 mmHg (60-100); SAMPLE BLOOD; SAO2 96.9 % (95.0-100.0); SRATE 15 BPM; THB 9.8 g/dL (11.5-17.4); TVOL 600 mL; pH(98.6) 7.29 (7.35-7.45)
[2016-10-18 03:37] LABS: MODALITY VENTILATOR
[2016-10-18 04:34] LABS: ALLEN TEST YES; BLOOD TYPE ARTERIAL; DRAW SITE R RADIAL; METHB 1.8 % (0.0-1.5); O2(CT) 11.8 mL/dL (15.0-23.0); PCO2(98.6) 33 mmHg (35-45); PO2(98.6) 56 mmHg (60-100); SAMPLE BLOOD; SAO2 91.2 % (95.0-100.0); SRATE 15 BPM; THB 9.4 g/dL (11.5-17.4); TVOL 600 mL; pH(98.6) 7.38 (7.35-7.45)
[2016-10-18 04:35] LABS: MODALITY VENTILATOR
[2016-10-18 05:21] LABS: HEMATOCRIT 28.1 % (37.0-47.0); HEMOGLOBIN 9.3 g/dL (12.0-16.0); INR 4.42; MCH 29.2 PG (27-31); MCHC 33.1 g/dL (33-37); MCV 88.1 FL (81-99); MPV 11.8 FL (7.4-10.4); PROTIME 47.6 Seconds (9.2-11.7); RBC 3.19 XMIL (4.2-5.4)
[2016-10-18 05:30] LABS: CALCIUM 5.8 mg/dL (8.8-10.2); POTASSIUM 4.3 mmol/L (3.5-5.1); TOTAL BILIRUBIN 1.08 mg/dL (0.20-1.00); TOTAL PROTEIN 5.1 g/dL (6.3-8.3)
[2016-10-18] MEDS: MUCOMYST 20% INH SCH ×2 (07:43→19:35)
[2016-10-18] MEDS: PULMICORT INH SCH ×2 (07:43→19:35)
--- NOTE | 2016-10-18 08:48 | Diag Imaging Result Document ---
PROCEDURE NAME: CHEST-PORTABLE - 10/18/2016 PORTABLE CHEST: COMPARISON: 10/17/2016. FINDINGS: Endotracheal tube and nasogastric tube remain in place. There is cardiomegaly. There has been interval increase in infiltrate on the right. Underlying right pleural effusion is not excluded. The left lung appears clear except for mild prominence of perihilar markings. There is no pneumothorax seen. IMPRESSION: Increased infiltrate on the right. Cardiomegaly.
[2016-10-18] MEDS: LOPRESSOR PO SCH ×2 (09:08→20:21)
[2016-10-18] MEDS: CRESTOR PO SCH (09:08)
[2016-10-18] MEDS: ASPIRIN EC PO SCH (09:08)
[2016-10-18] MEDS ORDERED: VITAMIN K 10 MG in NS 50 ML IV ONE (10:00)
--- NOTE | 2016-10-18 10:14 | Diag Imaging Result Document ---
PROCEDURE NAME: CHEST-PORTABLE - 10/17/2016 PORTABLE CHEST: COMPARISON: Compared with the earlier exam of the same day. FINDINGS: There has been insertion of an endotracheal tube with its tip approximately 4 cm above the marizol. There has been insertion of a nasogastric tube which can be followed to the mid stomach. There is infiltrate on the right which appears less dense compared to the previous exam, although the apparent difference may be exaggerated by differences in exposure. The left lung appears clear. There is no substantial pleural effusion or pneumothorax identified. There is stable mild cardiomegaly. IMPRESSION: Satisfactory positions of endotracheal tube and nasogastric tube. Apparent decrease in infiltrate on the right, but this may be exaggerated by differences in exposure.
[2016-10-18] MEDS: NS 1,000 ML IV SCH (10:58)
--- NOTE | 2016-10-18 11:16 | PROGRESS NOTE ---
DATE: 10/18/2016 HISTORY: She presented on 10/16. I put her in the hospital. Seven to 10 days of history of progressively more short of breath, fever and chills, coughing a little more, increased orthopnea, paroxysmal nocturnal dyspnea, swelling in her lower extremities. SUBJECTIVE: She has a history of atrial fibrillation. Sounds like she has had partial ventriculectomy for IHSS and mitral valve replacement. She has smoked all her life, so advanced COPD. Admitted, put her up in [facility], and continued to struggle, and they had to intubate her. Dr. Best on the case. A 66-year-old with community acquired pneumonia, hypoxemic respiratory failure, coagulopathy, hemoptysis, acute on chronic renal failure. Volume status difficult to gauge. We did give her, I think, 3 units of fresh frozen. We are having difficulty with IV access and would like to get a PICC line. Pro time, however, is 40. IMAGING: We did do a V/Q scan yesterday, low probability of pulmonary embolism. Renal ultrasound done yesterday: Right kidney not visualized, large amount of artifact and bowel gas, and blood in the right renal fossa which could obscure the right kidney. No visible left renal abnormality. No left hydronephrosis. Dr. Booth was consulted, as well, with acute kidney injury, acute tubular necrosis as a consequence of her infection and sepsis syndrome, hypotension, and he wanted to err on the side of volume expansion especially early in the phase of ATN, receiving normal saline at 75 mL/h., has received at least three 500 mL boluses, so I want to continue that and holding diuretics. She has associated metabolic acidosis probably associated with her renal failure. OBJECTIVE/EXAM TODAY: Vital signs: Temp 98.0, pulse 78, respirations 16, blood pressure 110/49. HEENT: Pupils are equal and round. Lungs: Clear in all lung hardin. Cardiovascular: Regular rhythm and rate without murmur or S3. Abdomen: Soft. Skin: Warm and dry. Poor urine output. ASSESSMENT AND PLAN: 1. Severe pneumonia. Continue antibiotics. 2. Acute kidney injury, suspect acute tubular necrosis. Continue to air on the side of volume expansion, normal saline at 75 mL/h. 3. Atrial fibrillation, rate controlled. 4. Chronic obstructive pulmonary disease, respiratory failure on a ventilator. To continue broad- spectrum antibiotics. We gave a single dose of vancomycin. She needs a PICC line. Will give her 2 units of fresh frozen and some Vitamin K. 5. Status post septal wall ventriculotomy and mitral valve replacement. Assume this is for IHSS and mitral valve insufficiency. 6. Continue present medications.
--- NOTE | 2016-10-18 12:33 | PROGRESS NOTE ---
DATE: 10/18/2016 CHIEF COMPLAINT: Shortness of breath. SUBJECTIVE: Mrs. Collins apparently became more short of breath overnight and had to be intubated emergently. She is on a ventilator now on 80% FiO2. Her pO2 is 56, pH 7.38, pCO2 of 33. Chest x-ray shows extensive opacification of the right hemithorax. Her sodium is 125, BUN is 71, creatinine is 4.8. OBJECTIVE: Vital signs: Pulse is 91, is regular. Blood pressure is 94/42, respirations 22, temperature is 98 degrees. General: The patient is sedated, intubated. HEENT: Unremarkable. Chest: Shows extensive wheezes bilaterally. Breath sounds are diminished diffusely. Cardiac: Heart sounds are irregularly irregular, no gallop or murmur is noted. Abdomen: Slightly distended, nontender. Extremities: No edema. Neurological: She is sedated. IMPRESSION: 1. Patient who presented with progressive respiratory failure. She apparently has pneumonia with extensive infiltration of the right hemithorax, pleural effusion. 2. Patient has acute congestive heart failure. This is probably diastolic and related to atrial fibrillation and her previous history of hypertrophic cardiomyopathy. 3. Status post mitral valve replacement on long-term anticoagulation. At this point in time, she demonstrates excessive anticoagulation. Her INR had risen up to 7.56, now is down to 4.42. They are trying to insert a PICC line on her, and they cannot do that until the INR is reasonably low. 4. Seemingly a history of COPD, previous smoker. RECOMMENDATION: At this point in time, from a cardiology viewpoint, we might use amiodarone as needed to control her heart rate along with Cardizem. We may have to use pressors, specifically Jamel-Synephrine. Further advice will be forthcoming. Her situation is really grave, because she is developing acute renal failure on top of this acute illness. Further advice will be forthcoming.
[2016-10-18 14:09] LABS: HEMATOCRIT 26.8 % (37.0-47.0); HEMOGLOBIN 9.2 g/dL (12.0-16.0)
[2016-10-18 14:21] LABS: INR 1.84; PROTIME 19.6 Seconds (9.2-11.7)
--- NOTE | 2016-10-18 14:52 | PROGRESS NOTE ---
DATE: 10/18/2016 SUBJECTIVE: She has been intubated since I saw her yesterday. She has been quite unstable and has required aggressive volume resuscitation such that she is approximately 7 L positive since admission. She has had almost no urine output. OBJECTIVE: Vital Signs: Blood pressure 104/51, heart rate 84, respirations 20, afebrile. Intake 7 L, output less than 100 mL. PHYSICAL EXAM: General: Sedated on the ventilator. Skin: Warm and dry. HEENT: Conjunctivae are pink. Pupils are equal. Neck veins are distended. Oropharynx is dry. Heart: Irregular and rate controlled. Lungs: Have equal breath sounds with scattered diffuse crackles. Abdomen: Soft, nontender. Bowel sounds are not appreciated. Extremities: Have 2+ to 3+ edema. No clubbing or cyanosis. LABORATORY DATA: Sodium 125, potassium 4.3, chloride 86, bicarbonate 19, BUN 71, creatinine 4.8, calcium 5.8. Hemoglobin 9.2. IMPRESSION: 1. Acute kidney injury anuric. She has been adequately volume resuscitated so I will stop her IV fluids at this point. She has no absolute indications for dialysis and certainly is likely to have hemodynamic instability if we try to treat her with dialysis so we will continue to withhold this. Continual reassessment is appropriate. 2. Metabolic acidosis: Her pH is acceptable and her anion gap is 20. I will stop her IV bicarbonate. 3. Hypocalcemia. Will give 1 amp of IV calcium.
[2016-10-18] MEDS ORDERED: CALCIUM GLUCONATE 1 GM in NS 50 ML IV ONE (15:00)
[2016-10-18] MEDS: LEVAQUIN 250 MG/D5W 50 ML IV SCH (17:21)
[2016-10-18] MEDS: ROCEPHIN 1 GM/NS 50 ML IV SCH (20:00)
[2016-10-18] MEDS: CARDIZEM 100 MG/NS 100 ML IV SCH ×2 (20:21→20:29)
[2016-10-18] MEDS: PROTONIX IV SCH (20:38)
[2016-10-18] MEDS: SODIUM CHLORIDE 0.9% INJ SCH (20:38)
[2016-10-19] MEDS: DIPRIVAN 1% 100 ML IV SCH ×11 (00:21→23:00)
[2016-10-19] MEDS: SOLU-MEDROL IV SCH ×4 (00:25→22:20)
[2016-10-19] MEDS: DUONEB (A & A) INH SCH ×6 (03:22→23:22)
[2016-10-19] MEDS: NEO-SYNEPHRINE 50 MG in NS 250 ML IV SCH ×2 (05:20→22:36)
[2016-10-19 05:36] LABS: ALLEN TEST YES; BE -2.6 mmoll (-3.0-3.0); BLOOD TYPE ARTERIAL; DRAW SITE R RADIAL; METHB 2.4 % (0.0-1.5); O2(CT) 12.1 mL/dL (15.0-23.0); PCO2(98.6) 34 mmHg (35-45); PO2(98.6) 71 mmHg (60-100); SAMPLE BLOOD; SAO2 95.1 % (95.0-100.0); SRATE 18 BPM; THB 9.3 g/dL (11.5-17.4); TVOL 550 mL; pH(98.6) 7.41 (7.35-7.45)
[2016-10-19 05:37] LABS: MODALITY VENTILATOR
[2016-10-19 05:43] LABS: HEMATOCRIT 26.3 % (37.0-47.0); HEMOGLOBIN 9.3 g/dL (12.0-16.0); INR 1.19; MCH 30.4 PG (27-31); MCHC 35.4 g/dL (33-37); MCV 85.9 FL (81-99); MPV 12.3 FL (7.4-10.4); PROTIME 12.6 Seconds (9.2-11.7); RBC 3.06 XMIL (4.2-5.4)
[2016-10-19 06:17] LABS: POTASSIUM 4.2 mmol/L (3.5-5.1); TOTAL BILIRUBIN 1.5 mg/dL (0.20-1.00); TOTAL PROTEIN 5.1 g/dL (6.3-8.3)
[2016-10-19 06:18] LABS: CALCIUM 5.8 mg/dL (8.8-10.2)
[2016-10-19] MEDS ORDERED: CALCIUM GLUCONATE 2 GM in NS 100 ML IV ONE (06:25)
--- NOTE | 2016-10-19 07:00 | Diag Imaging Result Document ---
PROCEDURE NAME: CHEST-PORTABLE - 10/19/2016 PORTABLE CHEST: COMPARISON: Compared to 10/18/3016. FINDINGS: No change in the nasogastric tube or endotracheal tube. Sternal wires are present and heart is enlarged. There is opacification of the mid right hemithorax. I believed there is a right-sided effusion. Vascular distension is present. IMPRESSION: No interval improvement.
[2016-10-19] MEDS: PULMICORT INH SCH ×2 (07:34→19:40)
[2016-10-19] MEDS: MUCOMYST 20% INH SCH ×2 (07:34→19:40)
[2016-10-19] MEDS: ASPIRIN EC PO SCH (09:05)
[2016-10-19] MEDS: LOPRESSOR PO SCH ×2 (09:05→20:02)
--- NOTE | 2016-10-19 09:41 | PROGRESS NOTE ---
DATE: 10/19/2016 CHIEF COMPLAINT: Shortness of breath. SUBJECTIVE: The patient remains intubated. She has made no progress. Chest x- ray looks the same, as reported by Dr. Johnson today. OBJECTIVE: Blood pressure today 96/52, temperature 987.9, pulse 92, respirations 20. The patient is sedated on a ventilator. HEENT: Unremarkable. Chest: Diminished breath sounds in the right lung field. Cardiac: Heart sounds are irregularly regular. Systolic click of the closure mitral valve is noted. Abdomen: Soft. Extremities: Show no edema. Neurologic: Sedated. DIAGNOSTIC DATA: PT/INR 12.6/1.19, pH 7.41, PO2 71, PCO2 34. She is on 100% FIO2. Sodium 123, potassium 4.2, BUN 81, creatinine 5.6. Her C-reactive protein is markedly elevated at 405 mg/L, this is very high.ESR is 96 mm/hr. The latter 2 tests support the suspicion of pneumonia with intense inflammatory process. IMPRESSION: 1. Patient who has extensive pneumonia, right lung, with acte respiratory failure, severe. 2. History of hypertrophic cardiomyopathy, status post mitral valve replacement , status post myectomy. 3. Atrial fibrillation, persistent. RECOMMENDATIONS: Continue with supportive therapy. Unfortunately, her prognosis appears to be very poor, particularly since she is developing severe renal failure and also, now, her liver function tests are going up, indicating that she is having shock liver. Her AST has jumped to 1084, ALT to 55. This patient is probably not going to survive with the present condition. MTDD
--- NOTE | 2016-10-19 10:13 | PROGRESS NOTE ---
DATE: 10/19/2016 SUBJECTIVE: Ms. Collins is intubated. Appears to be comfortable. She remains afebrile. PHYSICAL EXAMINATION: Vital Signs: Temperature 97.9 degrees, pulse 92, respirations 20, blood pressure 115/43. HEENT: Pupils are equal and round. CVP less than 6 cm. Lungs: Clear in all lung hardin. Cardiovascular Examination: Regular rhythm and rate without murmur or S3. Abdomen: Soft. Is and Os: Urine output was over 3700 mL. HISTORY: To recall, she was admitted on 10/16/2016. She had 7-10 days of progressively worsening shortness of breath, coughing a little more. Denied any fever or chills. She has had, I believe, atrial fibrillation before, partial ventriculectomy, and mitral valve replacement. Has a long history of smoking, COPD, and respiratory status deteriorated, and intubated. Moved to the unit. ASSESSMENT AND PLAN: 1. Progressive respiratory failure. Apparently appears to be consistent with pneumonia, exacerbation of chronic obstructive pulmonary disease. Extensive infiltration of the right hemothorax, pleural effusion. 2. Acute congestive heart failure was suspected initially, probably diastolic in the face of atrial fibrillation. 3. Atrial fibrillation with rate controlled. 4. Status post mitral valve replacement. Apparently has had septal ventriculectomy. I assume this is for IHSS. 5. Feeding her with nasogastric feeding. 6. Review of her medications. She was on norphenylephrine for blood pressure, Lasix 40 mg which she just got after her transfusion, Protonix 40 mg daily, albuterol and ipratropium treatments, methylprednisone 80 mg intravenous every 8 hours and we will decrease that down to 60 mg every 12, Lopressor 12.5 mg by mouth twice a day, and aspirin 81 mg a day, ceftriaxone one every 24 hours.
[2016-10-19] MEDS ORDERED: NS 500 ML ONE (11:23)
[2016-10-19] MEDS: CARDIZEM 100 MG/NS 100 ML IV SCH (15:53)
[2016-10-19] MEDS: ROCEPHIN 1 GM/NS 50 ML IV SCH (20:01)
[2016-10-19] MEDS: PROTONIX IV SCH (20:41)
[2016-10-19] MEDS: SODIUM CHLORIDE 0.9% INJ SCH (20:41)
[2016-10-20] MEDS: DIPRIVAN 1% 100 ML IV SCH ×3 (00:56→06:34)
--- NOTE | 2016-10-20 02:54 | PROGRESS NOTE ---
DATE: 10/19/2016 ADDENDUM: PROBLEM LIST: 1. Respiratory failure. I suspect it is from pneumonia, right-sided infiltrate, pleural effusion. We will continue present antibiotics, for which she is on Levaquin and ceftriaxone. 2. Acute renal injury. Suspect this is acute atubular necrosis. Note, her calcium is a little low. Note that serum creatinine is going, 5.6 at this time. 3. She has elevation of transaminases. I suspect that may be multifactorial. 4. She has had a history of ventriculectomy and mitral valve replacement. 5. History of chronic obstructive pulmonary disease, long history of smoking, and I suspect it is approaching end-stage chronic obstructive pulmonary disease. 6. Atrial fibrillation. Continue her amiodarone. Note, this is complicated patient with multiple issues going on. I do not see any change in her orders.
[2016-10-20 03:20] LABS: ALLEN TEST YES; BE -7.9 mmoll (-3.0-3.0); BLOOD TYPE ARTERIAL; DRAW SITE R RADIAL; METHB 2.3 % (0.0-1.5); O2(CT) 12.4 mL/dL (15.0-23.0); PCO2(98.6) 43 mmHg (35-45); PO2(98.6) 59 mmHg (60-100); SAMPLE BLOOD; SAO2 90.4 % (95.0-100.0); SRATE 18 BPM; THB 10.4 g/dL (11.5-17.4); TVOL 550 mL; pH(98.6) 7.25 (7.35-7.45)
[2016-10-20 03:22] LABS: MODALITY VENTILATOR
[2016-10-20 03:25] LABS: HEMATOCRIT 29.5 % (37.0-47.0); HEMOGLOBIN 11.5 g/dL (12.0-16.0); MCH 33.3 PG (27-31); MCV 85.5 FL (81-99); MPV 12.1 FL (7.4-10.4); PLT 253 X1000 (130-400); RBC 3.45 XMIL (4.2-5.4)
[2016-10-20] MEDS: DUONEB (A & A) INH SCH ×6 (03:32→23:10)
[2016-10-20 03:48] LABS: ALBUMIN 1.5 g/dL (3.5-5.0); TOTAL BILIRUBIN 2.27 mg/dL (0.20-1.00); TOTAL PROTEIN 5.6 g/dL (6.3-8.3)
[2016-10-20 04:27] LABS: CALCIUM 5.6 mg/dL (8.8-10.2); POTASSIUM 6.8 mmol/L (3.5-5.1)
[2016-10-20 04:31] LABS: LYMPHS 4 % (21-51); MONO 10 % (1-9); NRBC 1 % (0-0)
[2016-10-20] MEDS ORDERED: CALCIUM GLUCONATE IV PUSH ONE (04:37)
[2016-10-20] MEDS ORDERED: D50W SYRINGE IV ONE (04:38)
[2016-10-20] MEDS ORDERED: HUMULIN R IV ONE (04:39)
[2016-10-20] MEDS ORDERED: ALBUTEROL 0.5% INH CONC FOR HYPERKALEMIA INH ONE (04:42)
[2016-10-20 05:09] LABS: INR 1.69
[2016-10-20 05:10] LABS: PROTIME 20.1 Seconds (9.2-11.7)
[2016-10-20] MEDS: SOLU-MEDROL IV SCH ×3 (05:48→21:57)
--- NOTE | 2016-10-20 07:33 | Diag Imaging Result Document ---
PROCEDURE NAME: CHEST-PORTABLE - 10/20/2016 AP PORTABLE CHEST ERECT, 10/20/2016 AT 0510 HOURS: FINDINGS: There is an endotracheal tube with its tip at the thoracic inlet and an NG tube which passes below the diaphragm. There is diffuse pulmonary edema with dense consolidation present in the lower portion of the right upper lobe. This has not changed appreciably since 10/19/2016 but is clearly worse than on 10/17/2016. IMPRESSION: Right upper lobe pneumonia and pulmonary edema.
[2016-10-20] MEDS: PULMICORT INH SCH ×2 (08:09→19:36)
[2016-10-20] MEDS: MUCOMYST 20% INH SCH ×2 (08:09→19:35)
[2016-10-20] MEDS ORDERED: NS 0 ML ONE (08:34)
--- NOTE | 2016-10-20 08:41 | PROGRESS NOTE ---
DATE: 10/20/2016 SUBJECTIVE: She remains sedated on the ventilator. OBJECTIVE: Vital Signs: Blood pressure 114/46, heart rate 72, respirations 18, afebrile. Intake 1.9 L. Output 0. She is net positive 10 L since admission. Physical Examination: General: Sedated as above. Skin: Warm and dry. HEENT: Conjunctivae are pink. Pupils are equal. Oropharynx is dry. Neck: Neck veins are distended. Heart: Regular and tachycardic. Lungs: Have equal breath sounds. Few scattered crackles. Abdomen: Soft and minimal bowel sounds. Nontender. Extremities: Have 2+ edema. No clubbing or cyanosis. Laboratory Data: Sodium 116, potassium 6.8, chloride 76, bicarbonate 17, BUN 85, creatinine 6.3, calcium 5.6. Hemoglobin 11.5. IMPRESSION: Acute kidney injury, anuric. She meets criteria for dialysis today. I spoke with her daughter regarding the role of dialysis treatment in the management of her acute illness. She understands and is anxious to begin treatment. I have asked Dr. Brown to place a Vas-Cath and we will began sustained low-efficiency dialysis thereafter. She has undergone initial treatment for her hyperkalemia with intravenous calcium and insulin, D50, and albuterol. She will have an 8 hour treatment today with sustained low-efficiency dialysis with a 4 potassium bath and a 27 bicarbonate with a goal of 6 L ultrafiltration. We will set the machine sodium to 132.
--- NOTE | 2016-10-20 09:24 | ECHO REPORT ---
ORDER DATE: 10/16/2016 CLINICAL INDICATIONS: A 66-year-old female with shortness of breath, atrial fibrillation, mechanical valve prosthesis. M-MODE MEASUREMENTS: Right ventricle: 3.2 cm. Left ventricle end diastole: 5.1 cm. Left ventricle end systole: 4.1 cm. Posterior wall: 1.6 cm. Interventricular septum: 1.6 cm. Left atrium: 5.5 cm. Aortic root: 3.7 cm. SUMMARY OF 2-DIMENSIONAL IMAGIN. The study is technically very limited. 2. The patient has poor acoustic windows and, in addition, she is tachycardic with atrial fibrillation, rapid response. Rate is up to 130 beats per minute. 3. The left ventricular systolic function appears to be preserved, ejection fraction in the order of 55% to 60%. 4. The right ventricle is not dilated. The atria are difficult to evaluate because of significant shadowing created by the prosthetic mitral valve and also by the patient's poor acoustic windows. 5. The patient has a prosthetic valve in the mitral position. The maximum gradient across the valve measures up to 17 mmHg, mean gradient measures up to 9 mmHg. This is moderately increased. Whether it just relates to the combination of the patient being tachycardic and a small annulus size versus some pathology cannot be excluded. The aortic valve shows thickening of the cusp. There is a trivial degree of aortic regurgitation. The aortic regurgitation in this particular case, cannot be well evaluated because of the poor acoustic windows and superimposition of Doppler signal coming from the mitral inflow. The tricuspid valve shows mild to moderate aortic root regurgitation. The inferior vena cava is not dilated. The pulmonary pressure is estimated at 42 mmHg. 6. Pulmonary valve appears to be grossly normal with mild aortic root regurgitation. 7. There is no pericardial effusion, mass, and no thrombus. CONCLUSIONS: 1. in summary, this study is really very limited. The patient has very poor acoustic windows. Global left ventricular systolic function appears to be normal. Aortic valve shows thickening of the cusp, probably a mild degree of aortic regurgitation; however, a greater degrees of aortic regurgitation cannot be excluded due to difficulty performing Doppler evaluation of the outflow tract of the left ventricle. 2. There is a mechanical or prosthetic mitral valve with increased gradient. Whether this just relates to the patient's rapid heart rate, with a small mitral annulus versus some pathology cannot be excluded. 3. There is a mild degree of pulmonary hypertension. 4. If indicated, consider performing a transesophageal echocardiogram for further investigation of this patient's cardiac status. YURIYD
[2016-10-20] MEDS ORDERED: NS 2,000 ML ONE (10:37)
[2016-10-20 10:38] LABS: PTT PL 46.2 Seconds (22.6-43.9)
[2016-10-20] MEDS ORDERED: HEPARIN ONE (10:38)
[2016-10-20] MEDS: LOPRESSOR PO SCH ×2 (10:38→21:21)
[2016-10-20] MEDS: ASPIRIN EC PO SCH (10:38)
[2016-10-20] MEDS: SODIUM BICARBONATE 8.4% IV PUSH SCH ×2 (10:38→14:47)
[2016-10-20] MEDS: ALBUMIN 25% IV SCH ×2 (10:44→16:57)
--- NOTE | 2016-10-20 10:51 | PROGRESS NOTE ---
DATE: 10/20/2016 SUBJECTIVE: Ms. Collins is still intubated. She is in respiratory failure, acute kidney. We are going to try to put a Vas-Cath in. I feel she probably has acute tubular necrosis and is going to need dialysis. OBJECTIVE: Vital signs: Today temp 97.7 degrees, pulse 60, respirations 18, blood pressure 168/60. HEENT: Pupils are equal, round. Neck: CVP less than 6 cm. Lungs: Clear in all lung hardin. Cardiovascular: Regular rhythm and rate without murmur or S3. Abdomen: Soft. Skin: Warm and dry. : Very poor urine output. LABORATORY: Review of lab this morning, white count 15,860, hematocrit 29, platelet count 253,000. Chemistry: Sodium 116, potassium 6.8, chloride 76, bicarb 17, BUN 85, creatinine 6.3, calcium 5.6, albumin 1.5. ASSESSMENT AND PLAN: 1. Acute kidney injury. Suspect acute tubular necrosis. She is going to need dialysis. Several electrolyte abnormalities. Profound hyponatremia, hyperkalemia. BUN is 85, creatinine 6.3, calcium is 5.6. Note that liver enzymes had a marked decline yesterday. AST was 1,000 and ALT 255, down to 12 and 19 so I will probably recheck those again. C-reactive protein 405. 2. Respiratory failure. Vent dependent. 3. Elevation of transaminases. Seemed to resolve very quickly, so question that. Will recheck liver enzymes again tomorrow. 4. Status post ventriculectomy and mitral valve replacement. 5. Atrial fibrillation. Rate is controlled. REVIEW OF ORDERS: On methylprednisone 40 mg IV q.8, Lasix 40 mg IV which she received after transfusion, Protonix 40 mg IV q.24 hours. She is on propofol, levofloxacin 250 mg IV q.48 hours. She is on diltiazem drip, Lopressor 12.5 b.i.d., aspirin 81 mg a day. She is on Pulmicort.
[2016-10-20] MEDS ORDERED: AZACTAM 2 GM in NS 100 ML IV ONE (11:00)
[2016-10-20 11:18] LABS: INR 2.03 (0.86-1.15); PROTIME 23.1 Seconds (12.1-15.5)
[2016-10-20] MEDS ORDERED: VANCOMYCIN 1 GM/NS 250 ML IV ONE (11:30)
--- NOTE | 2016-10-20 12:15 | OPERATIVE NOTE ---
PROCEDURE DATE: 10/20/2016 PREOPERATIVE DIAGNOSES: 1. Acute renal failure. 2. Coagulopathy. 3. Chronic obstructive pulmonary disease. 4. Congestive heart failure. 5. Atrial fibrillation. POSTOPERATIVE DIAGNOSES: 1. Acute renal failure. 2. Coagulopathy. 3. Chronic obstructive pulmonary disease. 4. Congestive heart failure. 5. Atrial fibrillation. PROCEDURE PERFORMED: Ultrasound-guided right femoral vein Vas-Cath placement. SURGEON: Garret Brown MD PULLEY MAN: None. ANESTHESIA: Local, administered by the surgeon. FINDINGS: Ultrasound showed a good caliber right femoral vein. HISTORY: The patient is a 66-year-old female, admitted on 10/16/2016 with acute kidney injury, atrial fibrillation, congestive heart failure, COPD, and pneumonia. Her kidney function had progressively worsened to the point where Dr. Booth with Nephrology felt that she might require hemodialysis. She had become coagulopathic in the interim and, given that and her COPD, I elected to place a Vas-Cath in her groin. I did discuss with the family the risks of bleeding given her coagulopathy. They voiced understanding and wished to proceed with the procedure. DESCRIPTION OF PROCEDURE: After informed consent was obtained from the family, the patient remained in her ICU bed on the ventilator. We prepped and draped the right groin in the standard fashion. We used the ultrasound to identify the right common femoral vein. I was able to cannulate it on the 1st pass. I passed a wire into the vein. We serially dilated up the tract in typical Seldinger technique. We were able to aspirate and flush blood from all ports. We secured the port in place. We placed a sterile dressing. The patient tolerated the procedure well and remained in her ICU bed on the ventilator. Postoperatively, we will monitor her groin for any hematomas.
--- NOTE | 2016-10-20 13:10 | PROGRESS NOTE ---
DATE: 10/20/2016 SUBJECTIVE: Ms. Collins is on the ventilator. She has pressors going. Dialysis is currently running as well. PHYSICAL EXAMINATION: Vital signs: She is afebrile. Her heart rate during my examination was in the 90s. Most recent blood pressure 168/60. General: She is in no acute distress. She is sedated. Cardiovascular: She is in an irregularly irregular rhythm consistent with atrial fibrillation. She has trace bilateral lower extremity edema. Chest: Has coarse bilateral mechanical breath sounds heard throughout. Abdomen: Soft, nontender. Skin Exam: Warm and dry throughout. PERTINENT DATA: White count is up to 50 from 20 yesterday, hematocrit 29.5, platelet count 253,000. She has a left shift. INR 2.0. Her sodium is 116, potassium 6.8, BUN 85, creatinine 6.3; that is up from 81 and 5.6 yesterday. T bilirubin is 2.2. Her liver enzymes yesterday were 1,984 for the AST; today it is 12. ASSESSMENT: 1. Sepsis. 2. Respiratory failure. 3. Acute kidney injury. 4. Atrial fibrillation. PLAN: Patient has had reasonable rate control. She has been on and off diltiazem as needed for rate control. At this point from a cardiovascular standpoint I do not have a lot of recommendations. I would continue with supportive care as she is getting right now.
[2016-10-20] MEDS: NEO-SYNEPHRINE 50 MG in NS 250 ML IV SCH (13:38)
[2016-10-20] MEDS: CARDIZEM 100 MG/NS 100 ML IV SCH (13:38)
[2016-10-20 17:20] LABS: HEMATOCRIT 28.9 % (37.0-47.0); HEMOGLOBIN 10.9 g/dL (12.0-16.0); MCHC 37.7 g/dL (33-37); MCV 84.8 FL (81-99); MPV 11.6 FL (7.4-10.4); RBC 3.41 XMIL (4.2-5.4)
[2016-10-20 17:59] LABS: ALBUMIN 2.1 g/dL (3.5-5.0); CALCIUM 6.8 mg/dL (8.8-10.2); POTASSIUM 6.4 mmol/L (3.5-5.1); TOTAL BILIRUBIN 2.64 mg/dL (0.20-1.00); TOTAL PROTEIN 5.6 g/dL (6.3-8.3)
[2016-10-20] MEDS: LEVAQUIN 250 MG/D5W 50 ML IV SCH (18:15)
[2016-10-20 18:22] LABS: DIRECT LDL < 3 mg/dL; HDL 5 mg/dL (45-65); TRIGLYCERIDES 1105 mg/dL (35-135); VLDL 221 mg/dL
[2016-10-20] MEDS: ALBUTEROL 0.5% INH CONC FOR HYPERKALEMIA INH SCH ×2 (18:24→23:07)
[2016-10-20] MEDS: HUMULIN R IV SCH ×2 (18:28→21:58)
[2016-10-20] MEDS: D50W SYRINGE IV SCH ×2 (18:29→21:57)
[2016-10-20] MEDS ORDERED: AZACTAM 1 GM in NS 50 ML IV SCH (20:00)
[2016-10-20] MEDS: SODIUM CHLORIDE 0.9% INJ SCH (21:20)
[2016-10-20] MEDS: PROTONIX IV SCH (21:20)
[2016-10-20] MEDS ORDERED: VASELINE ONE (22:50)
[2016-10-20] MEDS: ATIVAN IV PRN (22:56)
[2016-10-21 03:06] VITALS: BP 116/75
[2016-10-21] MEDS: DUONEB (A & A) INH SCH (03:32)
[2016-10-21] MEDS ORDERED: VASELINE TOP PRN (04:00)
[2016-10-21 04:28] LABS: ALLEN TEST YES; BE -6.1 mmoll (-3.0-3.0); BLOOD TYPE ARTERIAL; DRAW SITE R RADIAL; O2(CT) 10.8 mL/dL (15.0-23.0); PCO2(98.6) 43 mmHg (35-45); PO2(98.6) 86 mmHg (60-100); SAMPLE BLOOD; SAO2 97.4 % (95.0-100.0); SRATE 28 BPM; THB 8.2 g/dL (11.5-17.4); TVOL 500 mL; pH(98.6) 7.28 (7.35-7.45)
[2016-10-21 04:35] LABS: METHB 3.3 % (0.0-1.5); MODALITY VENTILATOR
[2016-10-21] MEDS: ATIVAN IV PRN (04:52)
[2016-10-21 05:32] LABS: HEMATOCRIT 28.1 % (37.0-47.0); HEMOGLOBIN 10.2 g/dL (12.0-16.0); MCH 31.7 PG (27-31); MCHC 36.3 g/dL (33-37); MCV 87.3 FL (81-99); MPV 12.5 FL (7.4-10.4); RBC 3.22 XMIL (4.2-5.4)
[2016-10-21 05:57] LABS: INR 2.87; PROTIME 30.7 Seconds (9.2-11.7)
[2016-10-21] MEDS ORDERED: CALCIUM CHLORIDE SYRINGE ONE (06:00)
[2016-10-21] MEDS ORDERED: SODIUM BICARBONATE 8.4% ONE (06:00)
[2016-10-21] MEDS ORDERED: ATROPINE SYRINGE ONE ×2 (06:00→06:04)
[2016-10-21] MEDS ORDERED: EPINEPHRINE SYRINGE ONE (06:00)
[2016-10-21] MEDS: SOLU-MEDROL IV SCH (06:00)
[2016-10-21 06:13] LABS: ALBUMIN 2.4 g/dL (3.5-5.0); TOTAL BILIRUBIN 3.14 mg/dL (0.20-1.00); TOTAL PROTEIN 5.6 g/dL (6.3-8.3)
[2016-10-21 06:15] LABS: CALCIUM 6.8 mg/dL (8.8-10.2); POTASSIUM 6.6 mmol/L (3.5-5.1)
[2016-10-21 06:53] LABS: RANDOM VANCOMYCIN 20.7 ug/mL (5.0-80)
--- NOTE | 2016-10-21 07:36 | Diag Imaging Result Document ---
PROCEDURE NAME: CHEST-PORTABLE - 10/21/2016 SINGLE FRONTAL RADIOGRAPH OF THE CHEST: COMPARISON: 10/20/2016. FINDINGS: ET tube is in stable position. NG tube projects below the diaphragm and out of the field of view. Bilateral diffuse edema is essentially stable. Focal dense consolidation in the right mid lung zone is unchanged. No new consolidation is identified. Cardiac silhouette is stable. IMPRESSION: Essentially stable chest.
[2016-10-21] MEDS ORDERED: NS 1,000 ML ONE (07:37)
[2016-10-21] MEDS ORDERED: NS 2,000 ML ONE (07:51)
[2016-10-21 11:19] LABS: HEPATITIS PROFILE ACUTE SEE COMMENTS (())
--- NOTE | 2016-10-22 15:55 | DISCHARGE SUMMARY ---
ADMISSION DATE: 10/16/2016 DISCHARGE DATE: 10/21/2016 She was admitted by me with history of 7-10 days progressively more short of breath. Denied any fever or chills. No cough. She had definite increased orthopnea, paroxysmal nocturnal dyspnea, and swelling in her lower extremities. Denied any feeling of palpitations. PAST MEDICAL HISTORY: 1. She has had a history of atrial fibrillation. 2. 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 Was about a year ago. 3. Has been on O2 at home. Chronic obstructive pulmonary disease with hypoxemia. 4. Hypertension. 5. Hyperlipidemia. She was admitted with pulmonary hypertension, trying to diurese. She had more work of breathing and declined in her oxygenation, increased CO2. We tried BiPAP and ended-up having to intubate her. Dr. Best was involved. She stayed in the unit on the ventilator and made very little progress. Unable in trying to get her off of the ventilator. We gave her some vancomycin. We treated empirically, but did not see any definitive evidence of infectious process. She got some packed red blood cells, or a unit of fresh frozen. An INR was in the 2 to 3 range. We tried to gently hydrate her a little bit to watching her renal function closely. Renal ultrasound on 10/17. Right kidney not visualized. Large amount of infarct from bowel gas below the right renal fossa, which could obscure the right kidney. No visible left renal abnormality. No left hydronephrosis. She had an increased infiltrate on the right, so treated that as possible pneumonitis. Dr. Booth was involved because of renal dysfunction and he felt that she probably had acute tubular necrosis. Set her up for dialysis. Also felt she could have pneumonia with sepsis as well. Continue antibiotics. Vascular access was placed per Dr. Brown on 10/20/2016. Cardiology was following as well. She developed bradycardia and coded on 10/21/2016 at approximately 6 o'clock on 10/21/2016. The patient at 6:30.
== END 2016-10-21 06:30 | disposition expired | DRG 871 ==
LOC: ED 12:54 → EDIPHOLD 17:24 → 3S 19:40 → ICU 10-17 16:53
PROVIDERS: ATTEND Internal Medicine
PROC: 30233K1 Transfusion of Nonautologous Frozen Plasma into Peripheral Vein, Percutaneous Approach (ICD-10-PCS; principal; 2016-10-17)
PROC: 5A1945Z Respiratory Ventilation, 24-96 Consecutive Hours (ICD-10-PCS; 2016-10-17)
PROC: 0DH67UZ Insertion of Feeding Device into Stomach, Via Natural or Artificial Opening (ICD-10-PCS; 2016-10-17)
PROC: 0BH17EZ Insertion of Endotracheal Airway into Trachea, Via Natural or Artificial Opening (ICD-10-PCS; 2016-10-17)
PROC: 06HM33Z Insertion of Infusion Device into Right Femoral Vein, Percutaneous Approach (ICD-10-PCS; 2016-10-20)
PROC: B54BZZA Ultrasonography of Right Lower Extremity Veins, Guidance (ICD-10-PCS; 2016-10-20)
PROC: 5A1D00Z (ICD-10-PCS; 2016-10-20)
PROC: 5A12012 Performance of Cardiac Output, Single, Manual (ICD-10-PCS; 2016-10-21)
DX: A41.9 Sepsis, unspecified organism (principal); N17.0 Acute kidney failure with tubular necrosis; J96.01 Acute respiratory failure with hypoxia; K72.00 Acute and subacute hepatic failure without coma; R65.21 Severe sepsis with septic shock; J44.0 Chronic obstructive pulmonary disease with (acute) lower respiratory infection; J18.9 Pneumonia, unspecified organism; D68.32 Hemorrhagic disorder due to extrinsic circulating anticoagulants; E83.51 Hypocalcemia; I27.2 Other secondary pulmonary hypertension; I50.33 Acute on chronic diastolic (congestive) heart failure; E87.2 Acidosis; E87.1 Hypo-osmolality and hyponatremia; R04.2 Hemoptysis; J44.1 Chronic obstructive pulmonary disease with (acute) exacerbation; I13.0 Hypertensive heart and chronic kidney disease with heart failure and stage 1 through stage 4 chronic kidney disease, or unspecified chronic kidney disease; T45.515A Adverse effect of anticoagulants, initial encounter; I48.2 Chronic atrial fibrillation; N18.9 Chronic kidney disease, unspecified; E78.5 Hyperlipidemia, unspecified; F17.210 Nicotine dependence, cigarettes, uncomplicated; E78.00 Pure hypercholesterolemia, unspecified; T50.1X6A Underdosing of loop [high-ceiling] diuretics, initial encounter; I46.9 Cardiac arrest, cause unspecified; Z91.128 Patient's intentional underdosing of medication regimen for other reason; I65.23 Occlusion and stenosis of bilateral carotid arteries; I25.10 Atherosclerotic heart disease of native coronary artery without angina pectoris; Z82.49 Family history of ischemic heart disease and other diseases of the circulatory system; Z82.3 Family history of stroke; E66.9 Obesity, unspecified; Z68.33 Body mass index [BMI] 33.0-33.9, adult; Z79.01 Long term (current) use of anticoagulants; Z79.899 Other long term (current) drug therapy; Z79.82 Long term (current) use of aspirin; Z85.89 Personal history of malignant neoplasm of other organs and systems; I44.7 Left bundle-branch block, unspecified; E87.5 Hyperkalemia; Z95.2 Presence of prosthetic heart valve
CPT/HCPCS: 36415; 71010; 76770; 78582; 80048; 80053; 80061; 80074; 80202; 81001; 82550; 82553; 82570; 82607; 82728; 82746; 82805; 82948; 83036; 83540; 83550; 83605; 83721; 83735; 83880; 84100; 84156; 84300; 84439; 84443; 84484; 85014; 85018; 85025; 85027; 85379; 85610; 85651; 85730; 86140; 86850; 86900; 86901; 87040; 87070; 87205; 87804; 92950; 93005; 93010; 93306; 94002; 94003; 94640; 94660; 94761; 94762; 94799; 96365; 96367; 96375; A9539; A9540; C1725; C9113; J0171; J0461; J0610; J0696; J1160; J1644; J1940; J2060; J2270; J2370; J2543; J2920; J2930; J3370; J3430; J7030; J7040; J7050; J7070; P9017; P9047; S0073; S0164